=== PATIENT | male | born 1945 | race Caucasian/White ===

== ENCOUNTER 2020-09-15 10:12 | Day surgery (SDC) | payer MEDICARE ==
[~2020-09-15] VITALS: Ht 172.7 cm; Wt 70.5 kg
[2020-09-15] MEDS ORDERED: POTA20TA14 PO (10:48)
[2020-09-15] MEDS ORDERED: Vitamin E PO (10:48)
[2020-09-15] MEDS ORDERED: TAMS-11 PO (10:48)
[2020-09-15] MEDS ORDERED: KETOCONAZOLE 2% (10:48)
[2020-09-15] MEDS ORDERED: PILOCARPINE PO (10:48)
[2020-09-15] MEDS ORDERED: OMEP20TA62 PO (10:48)
[2020-09-15] MEDS ORDERED: SPIR25TA5 PO (10:48)
[2020-09-15] MEDS ORDERED: FERR324T5 PO (10:48)
[2020-09-15] MEDS ORDERED: SACU1TAB PO (10:48)
[2020-09-15] MEDS ORDERED: DOCU-131 PO (10:48)
[2020-09-15] MEDS ORDERED: CARV3.122 PO (10:48)
[2020-09-15] MEDS ORDERED: ATOR40TA78 PO (10:48)
[2020-09-15] MEDS ORDERED: MULT-658 PO (10:48)
[2020-09-15] MEDS ORDERED: TADA20TA PO (10:48)
[2020-09-15] MEDS ORDERED: ONDA-89 PO (10:48)
[2020-09-15] MEDS ORDERED: FURO20TA3 PO (10:48)
[2020-09-15] MEDS ORDERED: ASPI81TA45 PO (10:48)
[2020-09-15] MEDS ORDERED: CYAN-27 IM (10:53)
[2020-09-15 10:57] VITALS: BP 109/60
[2020-09-15 11:02] LABS: BASOPHILS % (AUTO) 1 % (0-1); EOSINOPHILS % (AUTO) 2 % (1-7); LYMPHOCYTES % (AUTO) 14 % (22-44); MEAN CORPUSCULAR HEMOGLOBIN 31.5 pg (27.5-34.5); MEAN CORPUSCULAR HGB CONC 33.4 g/dL (33.2-36.2); MEAN PLATELET VOLUME 8.1 fL (7.4-10.4); MONOCYTES % (AUTO) 8 % (2-9); NEUTROPHILS % (AUTO) 75 % (42-75); PLATELET COUNT 176 x10^3/uL (130-400); RED BLOOD COUNT 4.58 x10^6/uL (4.38-5.82); RED CELL DISTRIBUTION WIDTH 13.6 % (9.4-14.8)
[2020-09-15 11:12] LABS: ANION GAP 7 mmol/L (5-15); CALCIUM 8.7 mg/dL (8.5-10.1); CHLORIDE 108 mmol/L (98-107); CREATININE 0.64 mg/dL (0.7-1.3)
[2020-09-15] MEDS ORDERED: MIDAZOLAM 1 MG/ML, 2ML ONE (12:00)
[2020-09-15] MEDS ORDERED: LIDOCAINE-MPF 1%, 5ML ONE (12:01)
[2020-09-15] MEDS ORDERED: VERAPAMIL 2.5 MG/ML, 2ML ONE (12:01)
[2020-09-15] MEDS ORDERED: HEPARIN 1,000 UNITS/ML, 10ML ONE (12:01)
[2020-09-15] MEDS ORDERED: FENTANYL PF 100 MCG/2ML ONE (12:01)
[2020-09-15] MEDS ORDERED: NITROGLYCERIN 5 MG/ML, 10ML ONE (12:02)
== END 2020-09-15 15:48 | disposition home or self-care (01) ==
LOC: CACL 10:12
PROVIDERS: ATTEND Internal Medicine Cardiovascular Disease
DX: I25.118 Atherosclerotic heart disease of native coronary artery with other forms of angina pectoris (principal); I42.9 Cardiomyopathy, unspecified; I11.0 Hypertensive heart disease with heart failure; I50.9 Heart failure, unspecified; I27.20 Pulmonary hypertension, unspecified; E78.5 Hyperlipidemia, unspecified; I25.2 Old myocardial infarction
CPT/HCPCS: 36415; 80048; 85025; 93458; 99156; C1769; C1894; J1644; J2250; J3010; Q9967